=== PATIENT | female | born 1990 | race Caucasian/White ===

== ENCOUNTER 2017-02-08 16:40 | Emergency (ER) | payer OTHER ==
[2017-02-08 18:10] VITALS: BP 112/70
[2017-02-08] MEDS ORDERED: Ketorolac INJ* 60 MG/2 ML VIAL IM ONE (18:26)
[2017-02-08] MEDS ORDERED: Ondansetron ODT TAB* 4 MG PO ONE (18:26)
--- NOTE | 2017-02-08 18:34 | ED ---
Abdominal Pain/Female - HPI Summary HPI Summary: Pt here w/ ab/flank sx. She started with nausea 2 weeks ago. This progressed to LLQ pain 1 week ago. This is the typical course of an ovarian cyst for her so she simply took naproxen hoping it would help. When this was not alleviating sx after a few days, she tried ibuprofen w/o relief. 3 days ago she developed RLQ pain, Rt flank pain and vomiting. Sometimes feels better to stretch this area but relief is temporary. Today has only been sipping fluids as she can't hold down any food, not even a protein shake she tried drinking this morning. Denies dysuria, urinary frequency, urinary urge, urinary incontinence. Still moving bowels well. She has a h/o UTI's and 1 x w/ pyelonephritis - the latter was so long ago, she doesn't recall if this feels the same or not. No known h/o urinary tract stones. She had a hysterectomy (uterus only) for significant endometriosis. Is sexually active with same partner and denies abnormal vaginal d/c or trauma here. H/o BV and does not feel the same. - History of Current Complaint Chief Complaint: UCAbdominalPain Stated Complaint: KIDNEY PAIN Time Seen by Provider: 02/08/17 18:13 Hx Obtained From: Patient Allergies/Adverse Reactions: Allergies Allergy/AdvReac Type Severity Reaction Status Date / Time No Known Allergies Allergy Verified 02/08/17 18:10 Home Medications: Home Medications NK [No Home Medications Reported] 02/08/17 [History Confirmed 02/08/17] PMH/Surg Hx/FS Hx/Imm Hx Previously Healthy: Yes Endocrine/Hematology History: Denies: Hx Anticoagulant Therapy, Hx Blood Disorders Cardiovascular History: Denies: Other Cardiovascular Problems/Disorders GI History: Denies: Hx Crohn's Disease, Hx Gastroesophageal Reflux Disease, Hx Irritable Bowel, Hx Ulcer History: Reports: Hx Kidney Infection Denies: Hx Kidney Stones - UTI and 1x pyelonephritis Neurological History: Denies: Hx Seizures - Surgical History Surgery Procedure, Year, and Place: HYSTERECTOMY Infectious Disease History: No Infectious Disease History: Denies: Traveled Outside the [place] in Last 30 Days - Family History Known Family History: Positive: Cardiac Disease, Hypertension, Diabetes, Other - HLD - Social History Occupation: Employed Full-time Lives: With Family Alcohol Use: Occasionally Hx Substance Use: Yes Substance Use Type: Reports: Marijuana Substance Use Comment - Amount & Last Used: 3 times a week Hx Tobacco Use: Yes Smoking Status (MU): Former Smoker Type: Cigarettes Review of Systems Negative: Fever, Chills Negative: Chest Pain Negative: Shortness Of Breath Gastrointestinal: Other - see HPI Positive: see HPI Musculoskeletal: Other - see HPI Skin: Negative Neurological: Negative Psychological: Normal All Other Systems Reviewed And Are Negative: Yes Physical Exam Triage Information Reviewed: Yes Vital Signs On Initial Exam: Initial Vitals Temp Pulse Resp BP Pulse Ox 99.7 F 73 17 112/70 98 02/08/17 18:02 02/08/17 18:02 02/08/17 18:02 02/08/17 18:02 02/08/17 18:02 Vital Signs Reviewed: Yes Appearance: Positive: Well-Appearing, No Pain Distress, Well-Nourished - thin Skin: Positive: Warm, Dry Head/Face: Positive: Normal Head/Face Inspection Eyes: Positive: Normal, EOMI, Conjunctiva Clear - anicteric sclera ENT: Positive: Pharynx normal - mucosa moist Respiratory/Lung Sounds: Positive: Clear to Auscultation, Breath Sounds Present Cardiovascular: Positive: Normal, RRR Abdomen Description: Positive: No Organomegaly, Soft, CVA Tenderness (R), Distended - lower ab Rt > Lt, Other: - LLQ and RLQ are TTP - no rebouning; Rt lower quadrant palpation refers pain to flank. Negative: CVA Tenderness (L) Pelvic Exam: Positive: other - deferred Musculoskeletal: Positive: Normal, Strength/ROM Intact Neurological: Positive: Normal, Sensory/Motor Intact, Alert, Oriented to Person Place, Time, CN Intact II-III Psychiatric: Positive: Normal Diagnostics - Vital Signs Vital Signs Temp Pulse Resp BP Pulse Ox 02/08/17 18:02 99.7 F 73 17 112/70 98 - Laboratory Lab Statement: Any lab studies that have been ordered have been reviewed, and results considered in the medical decision making process. Abdominal Pain Fem Course/Dx - Course Course Of Treatment: Pt's clinical presentation along w/ U/A findings are concerning for pyelonephritis w or w/o a stone. She agrees to go to ED for further assesment and tx. Declines ambulance and paperwork complete. Received medication here. Prefers [facility] - called and spoke w/ Dr. Alvin robledo to send. Pt left in stable condition. - Diagnoses Provider Diagnoses: Abdominal pain, Flank pain, UTI (urinary tract infection) Discharge - Discharge Plan Condition: Stable Disposition: TRANS HIGHER LVL OF CARE FAC
== END 2017-02-08 18:49 | disposition short-term general hospital (02) ==
LOC: UCCORT 16:40
DX: N39.0 Urinary tract infection, site not specified (principal); R10.32 Left lower quadrant pain; M54.5 Low back pain; R10.31 Right lower quadrant pain; Z87.440 Personal history of urinary (tract) infections; Z90.710 Acquired absence of both cervix and uterus; F12.90 Cannabis use, unspecified, uncomplicated; Z87.891 Personal history of nicotine dependence
CPT/HCPCS: 81003; 87086; 96372; 99213; A9270-GY; G0463; J1885

== ENCOUNTER 2017-05-10 08:37 | Emergency (ER) | payer OTHER ==
[2017-05-10] MEDS ORDERED: Fluorescein Sodium TOPICAL* 1 MG TEST OPHTHALMIC ONE (09:25)
[2017-05-10] MEDS ORDERED: BSS OPTH.SOL* BTL OPHTHALMIC ONE (09:26)
[2017-05-10] MEDS ORDERED: Tetracaine 0.5% OPTH.SOL 4 ML* 1 DROP BTL BOTH EYES SCH (09:30)
[2017-05-10] MEDS ORDERED: Tetracaine 0.5% OPTH.SOL 4 ML* 1 DROP BTL ONE (09:35)
[2017-05-10] MEDS ORDERED: Ibuprofen TAB* 400 MG PO ONE (10:35)
--- NOTE | 2017-05-10 10:38 | UC ---
Eye Complaint HPI - HPI Summary HPI Summary: Usually wears her glasses yesterday [place] the [place] with her contacts in ---took them off when she got home--awoke this morning with an exquisitely sore right eye, clear drainage, conjunctiva injection, hurts to open eye - History of Current Complaint Chief Complaint: UCEye Stated Complaint: EYE ISSUE Time Seen by Provider: 05/10/17 09:24 Hx Obtained From: Patient Hx Last Menstrual Period: hyster ?: No Onset/Duration: Sudden Onset, Lasting Days - 1 Timing: Constant Severity Initially: Severe Severity Currently: Severe Pain Intensity: 10 Pain Scale Used: 0-10 Numeric Location of Injury: Conjunctiva Character: Throbbing Aggravating Factor(s): Light Alleviating Factor(s): Nothing Associated Signs And Symptoms: Positive: Drainage (Clear), Vision Impairment Right - Allergies/Home Medications Allergies/Adverse Reactions: Allergies Allergy/AdvReac Type Severity Reaction Status Date / Time BEES Allergy See Comment Uncoded 05/10/17 08:45 PMH/Surg Hx/FS Hx/Imm Hx Previously Healthy: Yes Other History Of: Negative For: Anticoagulant Therapy - Surgical History Surgical History: Yes Surgery Procedure, Year, and Place: HYSTERECTOMY. NASAL. STATES HAS HAD 31 SURGERIES FOR ENDOMETRIOSIS. - Family History Known Family History: Positive: Cardiac Disease, Hypertension, Diabetes, Other - HLD - Social History Occupation: Employed Full-time Lives: With Family Alcohol Use: Occasionally Substance Use Type: Marijuana Substance Use Comment - Amount & Last Used: OCCASIONALLY Smoking Status (MU): Former Smoker Type: Cigarettes Household Exposure Type: Cigarettes - Immunization History Most Recent Influenza Vaccination: none Review of Systems Constitutional: Negative Skin: Negative Eyes: Blurred Vision - od, Drainage - od, Eye Redness - od, Photophobia - od ENT: Negative Respiratory: Negative Cardiovascular: Negative Gastrointestinal: Negative Genitourinary: Negative Motor: Negative Neurovascular: Negative Musculoskeletal: Negative Neurological: Negative Psychological: Negative All Other Systems Reviewed And Are Negative: Yes Physical Exam Triage Information Reviewed: Yes Appearance: Ill-Appearing, Pain Distress, Thin Vital Signs: Initial Vital Signs Temp 99.4 F 05/10/17 08:45 Pulse 88 05/10/17 08:45 Resp 18 05/10/17 08:45 BP 101/69 05/10/17 08:45 Pulse Ox 98 05/10/17 08:45 Vital Signs Reviewed: Yes Eye Exam: Normal Eyes: Positive: Conjunctiva Inflamed - od, Discharge - od, Other: - Eomi intact , perrla ENT Exam: Normal ENT: Positive: Normal ENT inspection, Hearing grossly normal. Negative: Nasal congestion, Nasal drainage, Trismus, Muffled/hoarse voice Dental Exam: Normal Neck exam: Normal Neck: Positive: Supple, Nontender, No Lymphadenopathy Respiratory Exam: Normal Respiratory: Positive: Chest non-tender, Lungs clear, Normal breath sounds, No respiratory distress, No accessory muscle use Cardiovascular Exam: Normal Cardiovascular: Positive: RRR, No Murmur, Pulses Normal, Brisk Capillary Refill Musculoskeletal Exam: Normal Musculoskeletal: Positive: Strength Intact, ROM Intact, No Edema Neurological Exam: Normal Neurological: Positive: Alert, Muscle Tone Normal Psychological Exam: Normal Skin Exam: Normal Re-Evaluation - Re-Evaluation First Eval Change: Unchanged - Pain relief with tetracaine, no evidence of abrasion or ulceration-Called to Consult Dr. Becerra --plan to send patient to office for continued evaluation Eye Complaint Course/Dx - Course Course Of Treatment: Pain med now follow with Dr. Becerra at 1415 today - Differential Dx/Diagnosis Differential Diagnosis/HQI/PQRI: Conjunctivitis, Corneal Abrasion, Foreign Body , Periorbital Cellulitis, Orbital Cellulitis Provider Diagnoses: Right eye pain Discharge - Discharge Plan Condition: Stable Disposition: HOME Patient Education Materials: Eye Pain (ED) Forms: *Work Release Referrals: David Weller MD [Primary Care Provider] - Jae Becerra MD [Medical Doctor] - 05/10/17 2:15 pm
[2017-05-10 10:44] VITALS: BP 99/73
== END 2017-05-10 10:43 | disposition home or self-care (01) ==
LOC: UCEAST 08:37
DX: H57.11 Ocular pain, right eye (principal); Z87.891 Personal history of nicotine dependence
CPT/HCPCS: 99212; A9270-GY; G0463

== ENCOUNTER 2018-03-02 09:58 | Emergency (ER) | payer OTHER ==
[2018-03-02 10:19] VITALS: BP 100/59
--- NOTE | 2018-03-02 10:44 | UC ---
Complaint Female HPI - HPI Summary HPI Summary: Vaginal odor since yesterday. She has not had a discharge. Recently she saw pcp and had a pelvic and had flagyl bid for 7 days. She did better and then symptoms returned. She denies pain. - History Of Current Complaint Chief Complaint: UCGU Stated Complaint: PERSONAL Time Seen by Provider: 03/02/18 10:24 Hx Obtained From: Patient Hx Last Menstrual Period: hyster Onset/Duration: Gradual Onset, Lasting Hours Timing: Constant, Lasting Hours Severity Initially: Moderate Severity Currently: Moderate Pain Intensity: 0 Character: Not Applicable Aggravating Factor(s): Nothing Alleviating Factor(s): Nothing Associated Signs And Symptoms: Negative: Fever, Back Pain, Vaginal Bleeding/ Discharge, Vaginal Discharge, Nausea, Vomiting(# Of Episodes =), Genital Swelling, Genital Blisters, Retained Foregin Body (Specify) - Allergies/Home Medications Allergies/Adverse Reactions: Allergies Allergy/AdvReac Type Severity Reaction Status Date / Time BEES Allergy See Comment Uncoded 03/02/18 10:19 Home Medications: Home Medications Amphetamine MIXED SALT TAB* [Adderall TAB*] 10 mg PO DAILY 03/02/18 [History Confirmed 03/02/18] PMH/Surg Hx/FS Hx/Imm Hx Previously Healthy: No - BV, hysterectomy for endometriosis. Other History Of: Negative For: Anticoagulant Therapy - Surgical History Surgical History: Yes Surgery Procedure, Year, and Place: HYSTERECTOMY. NASAL. STATES HAS HAD 31 SURGERIES FOR ENDOMETRIOSIS. - Family History Known Family History: Positive: Cardiac Disease, Hypertension, Diabetes, Other - HLD - Social History Alcohol Use: Occasionally Substance Use Type: Marijuana Substance Use Comment - Amount & Last Used: OCCASIONALLY Smoking Status (MU): Former Smoker Type: Cigarettes Household Exposure Type: Cigarettes - Immunization History Most Recent Influenza Vaccination: none Review of Systems Genitourinary: Other - odor. All Other Systems Reviewed And Are Negative: Yes Physical Exam Triage Information Reviewed: Yes Appearance: Well-Appearing, No Pain Distress, Well-Nourished Vital Signs: Initial Vital Signs Temp 99.7 F 03/02/18 10:13 Pulse 100 03/02/18 10:13 Resp 18 03/02/18 10:13 BP 100/59 03/02/18 10:13 Pulse Ox 100 03/02/18 10:13 Vital Signs Reviewed: Yes Eye Exam: Normal Eyes: Positive: Conjunctiva Clear ENT: Positive: Normal ENT inspection Neck: Positive: Supple, Nontender, No Lymphadenopathy Respiratory: Positive: Lungs clear, Normal breath sounds, No respiratory distress, No accessory muscle use. Negative: Respiratory distress, Decreased breath sounds, Accessory muscle use, Crackles, Rhonchi, Stridor Cardiovascular: Positive: RRR, No Murmur, Pulses Normal, Brisk Capillary Refill Abdomen Description: Positive: Nontender, No Organomegaly, Soft. Negative: CVA Tenderness (R), CVA Tenderness (L), Distended, Guarding Pelvic Exam: Positive: External Exam Normal, Speculum Exam Normal, Bimanual Exam Normal, Other - thin watery discharge. NO inflammation. No lesions.. Negative: Blood, Discharge, Mass, Tender w/ Cervical Motion, Tender Adnexa Musculoskeletal: Positive: Strength Intact, ROM Intact, No Edema Neurological: Positive: Alert, Muscle Tone Normal. Negative: Fatigued Psychological: Positive: Normal Response To Family, Age Appropriate Behavior, Abnormal Response To Family Skin: Negative: rashes Complaint Female Dx - Differential Dx/Diagnosis Provider Diagnoses: possible BV. Discharge - Sign-Out/Discharge Documenting (check all that apply): Discharge/Admit/Transfer - Discharge Plan Condition: Good Disposition: HOME Prescriptions: metroNIDAZOLE [Flagyl] 500 mg PO BID #20 tablet Patient Education Materials: Bacterial Vaginosis (ED) Referrals: Abida Hunt PA [Primary Care Provider] - - Billing Disposition and Condition Condition: GOOD Disposition: HOME
== END 2018-03-02 10:46 | disposition home or self-care (01) ==
LOC: UCCORT 09:58
DX: N89.8 Other specified noninflammatory disorders of vagina (principal); Z91.030 Bee allergy status; Z90.710 Acquired absence of both cervix and uterus; Z87.891 Personal history of nicotine dependence
CPT/HCPCS: 87480; 87491; 87510; 87591; 87661; 99212; G0463